=== PATIENT | male | born 1960 | race Caucasian/White ===

== ENCOUNTER 2017-02-10 21:57 | Inpatient (IN) | payer OTHER ==
[~2017-02-10] VITALS: Ht 180.3 cm; Wt 83.9 kg
[~2017-02-10 21:57] MED LIST: FLEXERIL10 MG PO; ROXICODONE5 MG PO
[2017-02-11 06:07] VITALS: BP 153/96
[2017-02-11 11:48] VITALS: BP 134/91
[2017-02-11 15:24] VITALS: BP 136/86
[2017-02-11 19:22] VITALS: BP 144/87
[2017-02-11 23:32] VITALS: BP 155/85
[2017-02-12 03:33] VITALS: BP 135/83
[2017-02-12 08:11] VITALS: BP 148/81
[2017-02-12 12:01] VITALS: BP 148/89
[2017-02-12 15:53] VITALS: BP 148/87
[2017-02-12 23:11] VITALS: BP 140/85
[2017-02-13 07:58] VITALS: BP 141/88
== END 2017-02-13 12:16 | disposition home or self-care (01) | DRG 460 ==
LOC: ENRESERV 21:57 → 2SOUTH 02-11 05:18 → ENRESERV 02-11 09:43 → 2SOUTH 02-11 10:15 → 3EAST 02-11 11:33 → 2SOUTH 02-11 11:51 → 3EAST 02-13 12:16
DX: M51.37 Other intervertebral disc degeneration, lumbosacral region (principal); G89.29 Other chronic pain; M62.81 Muscle weakness (generalized); Z87.891 Personal history of nicotine dependence
CPT/HCPCS: 72100; 76000; 95938; C1821; J0131; J0330; J0690; J1100; J1170; J1885; J2250; J2270; J2405; J3010; J3480